=== PATIENT | male | born 1960 | race Caucasian/White ===

== ENCOUNTER 2018-12-01 08:33 | Outpatient (CLI) | payer MEDICARE ==
--- NOTE | 2018-12-01 10:51 | CT ---
CT NECK WITH AND WITHOUT CONTRAST: (PARATHYROID PROTOCOL) DATE: 12-01-18 HISTORY: 58-year-old male with E21.0 primary hyperparathyroidism. History of previous parathyroid surgery (rep ortedly unsuccessful according to the patient). Technique: Pre contrast scan, 25 second post contrast scan, and 65 second post contrast scan, performed from artie roximately 6 cm inferiorly to the alexandrea to the C2-3 level. Coronal and sagittal reconstructions. 120 ml Isovue 370. Comparison: None available. FINDINGS: The left true vocal cord is medially deviated to the right, and contains hyperdense, calcific density material, perhaps representing Marcos or other injected foreign substance. No other abnormality of t he larynx identified. At the C7-T1 level, abutting the posterior surface of the lower pole of the lef t lobe of the thyroid gland, medial surface of the left common carotid artery, and lateral surface of the trachea, and slightly anterior to the esophagus, there is a thin sliver of enhancing tissue sofy uring approximately 0.8 cm AP x 0.2 cm transverse (axial images 58 of 196, series 3; 58 of 98, series 5; 58 of 98, series 6; and 58 of 98, series 2). It does not appear to have intrinsic iodine on the p recontrast scan. Because it is so thin, it is difficult to visualize on the sagittal and coronal imag es. This is a moderately good candidate for parathyroid adenoma. IMPRESSION: 1. Tiny enhancing piece of tissue posterior to the left lobe of the lower pole of the thyroid gland i s a moderate candidate for parathyroid adenoma. 2. 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 POS: [facility]
[2018-12-01] MEDS ORDERED: Iopamidol 370 76% 50 ML VIAL FS ONE (12:42)
[2018-12-01] MEDS ORDERED: Iopamidol 370 76% 100 ML VIAL ONE (12:42)
--- NOTE | 2018-12-01 14:36 | NM ---
RADIONUCLIDE PARATHYROID SCAN: 12/01/2018 COMPARISON: Previous pre and post contrast enhanced CT soft tissue neck, dated 12/01/2018. DOSE: Technetium 99m sestamibi 23.5 millicuries. TECHNIQUE: Anterior and oblique immediate and delayed images were obtained. FINDINGS: The area of abnormality noted by Dr. Weaver, at the inferior aspect of the left thyroid lobe, is not def initively visible on radionuclide imaging. This lesion, however, on CT is quite small and may not be definitively visible on radionuclide scan. However, I do agree with Dr. Weaver's dictation from the CT neck, where there is concern for posterior left inferior parathyroid possible adenoma. IMPRESSION: No definite scintigraphic evidence of parathyroid lesions; however, please see the accompanying dicta tion of the soft tissue neck, which suggests the presence of . POS: [facility]
== END 2018-12-01 08:34 | disposition home or self-care (01) ==
LOC: CT 08:33
PROVIDERS: ATTEND Otolaryngology Plastic Surgery within the Head & Neck
DX: E21.0 Primary hyperparathyroidism (principal)
CPT/HCPCS: 70492; 78072; A9500; Q9967